=== PATIENT | female | born 1945 | race Two or more races ===

== ENCOUNTER 2022-08-08 05:48 | Day surgery (SDC) | payer OTHER | END 2022-08-08 10:35 | disposition home or self-care (01) | LOC: AMB-ENDOS 05:48 | PROVIDERS: ATTEND Internal Medicine Gastroenterology | DX: K31.7 Polyp of stomach and duodenum (principal); Z88.0 Allergy status to penicillin; Z20.822 Contact with and (suspected) exposure to COVID-19 ==